=== PATIENT | female | born 2005 | race Two or more races ===

== ENCOUNTER 2024-03-02 13:23 | Inpatient (IN) | payer MEDICAID ==
[~2024-03-02] VITALS: Ht 162.6 cm; Wt 75.6 kg
[2024-03-02 14:06] LABS: BASOPHILS % (AUTO) 0.6 % (0.0-2.0); EOSINOPHILS % (AUTO) 0.3 % (1.0-6.0); HEMATOCRIT 43.2 % (36-46); HEMOGLOBIN 14.5 g/dL (12.0-16.0); LYMPHOCYTES # (AUTO) 1.4 K/uL (1.0-4.8); LYMPHOCYTES % (AUTO) 17.8 % (22.0-44.0); MEAN CORPUSCULAR HEMOGLOBIN 30.1 pg (26.0-34.0); MEAN CORPUSCULAR HGB CONC 33.7 G/dL (31.0-37.0); MEAN CORPUSCULAR VOLUME 90 fL (80-100); MONOCYTES # (AUTO) 0.4 K/uL (0.1-1.0); MONOCYTES % (AUTO) 5.4 % (2.0-9.0); NEUTROPHILS # (AUTO) 6.1 K/uL (1.8-7.7); NEUTROPHILS % (AUTO) 75.9 % (40.0-70.0); PLATELET COUNT (AUTO) 281 K/uL (150-450); RED BLOOD CELL COUNT(AUTO) 4.82 MIL/uL (4.00-5.20); RED CELL DISTRIBUTION WIDTH 13.8 % (11.5-14.5)
[2024-03-02 14:15] LABS: ANION GAP 11 mmol/L (8-16); CALCIUM, TOTAL 8.3 mg/dL (8.8-10.5); CARBON DIOXIDE 25 mmol/L (22-29); CHLORIDE 103 mmol/L (98-107); CREATININE 0.79 mg/dL (0.60-1.30); GLOMERULAR FILTR. RATE CALC > 60 mL/min (>60); GLUCOSE,RANDOM 98 mg/dL (70-110); POTASSIUM 3.7 mmol/L (3.5-5.1); SODIUM SERUM 139 mmol/L (136-145); UREA NITROGEN, BLOOD 11 mg/dL (7-18)
[2024-03-02 14:17] LABS: SALICYLATE 0.8 mg/dL (2.8-20.0)
[2024-03-02 14:21] LABS: ALANINE AMINOTRANSFERASE 13 U/L (12-78); ALBUMIN 4.1 g/dL (3.4-5.0); ALKALINE PHOSPHATASE 72 U/L (46-116); ASPARTATE AMINOTRANSFERASE 13 U/L (15-37); BILIRUBIN,TOTAL 0.4 mg/dL (0.1-1.0); TOTAL PROTEIN, SERUM 7.8 g/dL (6.4-8.2)
[2024-03-02 14:25] LABS: ACETAMINOPHEN < 2 mcg/mL (10-30)
[2024-03-02] MEDS: ACTIVATED CHARCOAL 50 GM/240 ML SUSPENSION PO ONE (14:31)
[2024-03-02] MEDS ORDERED: ZOLPIDEM TARTRATE 5 MG TABLET PO PRN (15:00)
[2024-03-02] MEDS ORDERED: LORazepam 1 MG TABLET PO PRN (15:00)
[2024-03-02] MEDS ORDERED: QUEtiapine FUMARATE 100 MG TABLET PO PRN (15:00)
[2024-03-02 16:33] LABS: COVID AG,FIA SOURCE NASAL SWAB
[2024-03-02 17:01] LABS: SARS-COV2 (COVID) ANTIGEN,FIA Negative (Negative)
[2024-03-02 22:57] VITALS: BP 135/85; PULSE 95; RESP 19; TEMP 98.2; O2SAT 96
[2024-03-03] MEDS ORDERED: GuaiFENesin/D-METHORPHAN [SUGAR-FREE] 200-20MG/10 ML SYRUP UDCUP PO PRN (08:45)
[2024-03-03] MEDS ORDERED: MAGNESIUM HYDROXIDE SUSPENSION 30 ML UDCUP PO PRN (08:45)
[2024-03-03] MEDS ORDERED: HydrOXYzine PAMOATE 50 MG CAPSULE PO PRN (08:45)
[2024-03-03] MEDS ORDERED: TUBERCULIN, PURIFIED PROTEIN DERIVATIVE 5 TU/0.1 ML SYRINGE ID ONE (08:45)
[2024-03-03] MEDS ORDERED: LOPERAMIDE HCL 2 MG CAPSULE PO PRN (08:45)
[2024-03-03] MEDS ORDERED: ACETAMINOPHEN 325 MG TABLET PO PRN (08:45)
[2024-03-03] MEDS ORDERED: MAG HYDROX/ALUMINUM HYD/SIMETH ES 30 ML SUSPENSION UDCUP PO PRN (08:45)
[2024-03-03] MEDS ORDERED: NALTREXONE HCL 50 MG TABLET PO SCH (09:00)
[2024-03-03 09:03] VITALS: BP 136/80; PULSE 90; RESP 18; TEMP 97.7; O2SAT 98
[2024-03-03] MEDS: FLUoxetine HCL 20 MG CAPSULE PO SCH (09:16)
[2024-03-03] MEDS: FOLIC ACID 1 MG TABLET PO SCH (09:16)
[2024-03-03] MEDS: MULTIVITAMINS WITH MINERALS, THERAPEUTIC TABLET PO SCH (09:16)
[2024-03-03] MEDS: THIAMINE 100 MG TABLET PO SCH (09:16)
[2024-03-03] MEDS: OMEGA-3/DHA/EPA/FISH OIL 1,000 MG CAPSULE PO SCH (09:16)
[2024-03-03 20:54] VITALS: BP 144/89; PULSE 87; RESP 19; TEMP 97.7; O2SAT 97
[2024-03-03] MEDS: MELATONIN 5 MG TABLET PO SCH (21:02)
[2024-03-03] MEDS: SERTRALINE HCL 50 MG TABLET PO SCH (21:02)
[2024-03-04 07:47] LABS: HEMOGLOBIN A1C 5.2 % (3.8-5.6)
[2024-03-04 07:56] LABS: CHOL/HDL RATIO 2.2 (3.9-5.7); FREE T4 (FREE THYROXINE) 1.29 ng/dL (0.76-1.46); THYROID STIMULATING HORMONE 1.17 uIU/mL (0.36-3.74)
[2024-03-04 08:35] VITALS: BP 135/84; PULSE 77; RESP 17; TEMP 97.7; O2SAT 97
[2024-03-04] MEDS: PROMETHAZINE HCL 25 MG TABLET PO PRN (08:55)
[2024-03-04] MEDS ORDERED: MELA5TAB40 PO (16:29)
[2024-03-04] MEDS ORDERED: OMEG-135 PO (16:29)
[2024-03-04] MEDS ORDERED: SERT-439 PO (16:29)
[2024-03-04 20:52] VITALS: BP 135/78; PULSE 84; RESP 18; TEMP 98.1; O2SAT 98
[2024-03-04] MEDS: SERTRALINE HCL 100 MG TABLET PO SCH (21:31)
== END 2024-03-05 12:31 | disposition home or self-care (01) | DRG 751 ==
LOC: EMS 13:24 → 3EI 20:34
PROVIDERS: ADMIT Psychiatry & Neurology Psychiatry; ATTEND Psychiatry & Neurology Psychiatry
PROC: GZHZZZZ Group Psychotherapy (ICD-10-PCS; principal; 2024-03-04)
PROC: GZ51ZZZ Individual Psychotherapy, Behavioral (ICD-10-PCS; 2024-03-04)
PROC: GZ56ZZZ Individual Psychotherapy, Supportive (ICD-10-PCS; 2024-03-04)
DX: F33.2 Major depressive disorder, recurrent severe without psychotic features (principal); R45.851 Suicidal ideations; F42.9 Obsessive-compulsive disorder, unspecified; Z20.822 Contact with and (suspected) exposure to COVID-19; T50.902A Poisoning by unspecified drugs, medicaments and biological substances, intentional self-harm, initial encounter; Y92.89 Other specified places as the place of occurrence of the external cause
CPT/HCPCS: 80053; 80061; 83036; 84439; 84443; 84703; 85025; 86592; 93005; 99291; G0480; G0481; Q9967